=== PATIENT | male | born 1995 | race Caucasian/White ===

== ENCOUNTER → 2018-03-10 | Outpatient (CLI) | payer OTHER ==
[2018-03-11 05:07] LABS: Urine Alcohol Negative (Negative); Urine Barbiturate Negative (Negative); Urine Cocaine Negative (Negative); Urine Methadone Negative (Negative); Urine Opiates Negative (Negative); Urine Phencyclidine Negative (Negative)
== END | disposition home or self-care (01) ==
LOC: LABWHC1 16:08
PROVIDERS: ATTEND Internal Medicine Sleep Medicine
DX: G47.11 Idiopathic hypersomnia with long sleep time (principal)
CPT/HCPCS: 80306

== ENCOUNTER 2018-09-08 12:28 | Emergency (ER) | payer OTHER ==
[2018-09-08 12:53] LABS: Glucose,Whole Blood 102 mg/dL (75-99)
--- NOTE | 2018-09-08 12:55 | ED ---
General Adult HPI - General Chief complaint: Syncope Stated complaint: near syncope, testicular pain Time Seen by Provider: 09/08/18 12:44 Source: patient, RN notes reviewed Mode of arrival: ambulatory Limitations: no limitations - History of Present Illness Initial comments: 22-year-old male without any significant past medical history presents to the emergency department for a chief complaint of testicular pain. Patient has had this pain for about one week. Patient states it is about a 4 and is constant in nature. Patient states it is a dull aching. Patient denies any abdominal pain despite triage note. Patient also states he had 2 near syncopal episode today. States he was at the [employer] store and then [employer] when he became lig htheaded. Patient states he did not lose consciousness but went and got something to eat and sat down. States he is now feeling better. Patient has no other complaints at this time including shortness of breath, chest pain, abdominal pain, nausea or vomiting, headache, or visual changes. - Related Data Home Medications Medication Instructions Recorded Confirmed Aspirin/Sod Bicarb/Citric Acid 1 tab PO Q6H 09/08/18 09/08/18 [Michael Original Tab Eff] Allergies Allergy/AdvReac Type Severity Reaction Status Date / Time No Known Allergies Allergy Verified 09/08/18 14:16 Review of Systems ROS Statement: Those systems with pertinent positive or pertinent negative responses have been documented in the HPI. ROS Other: All systems not noted in ROS Statement are negative. Past Medical History Past Medical History: No Reported History Additional Past Medical History / Comment(s): anxiety History of Any Multi-Drug Resistant Organisms: None Reported Past Surgical History: No Surgical Hx Reported Past Anesthesia/Blood Transfusion Reactions: No Reported Reaction Past Psychological History: Anxiety, Bipolar, Depression Smoking Status: Never smoker Past Alcohol Use History: Occasional Past Drug Use History: None Reported - Past Family History Mother Family Medical History: Diabetes Mellitus General Exam Limitations: no limitations General appearance: alert, in no apparent distress Head exam: Present: atraumatic, normocephalic, normal inspection Eye exam: Present: normal appearance, PERRL, EOMI. Absent: scleral icterus, conjunctival injection, periorbital swelling ENT exam: Present: normal exam, mucous membranes moist Neck exam: Present: normal inspection, full ROM. Absent: tenderness, meningismus, lymphadenopathy Respiratory exam: Present: normal lung sounds bilaterally. Absent: respiratory distress, wheezes, rales, rhonchi, stridor Cardiovascular Exam: Present: regular rate, normal rhythm, normal heart sounds. Absent: systolic murmur, diastolic murmur, rubs, gallop, clicks GI/Abdominal exam: Present: soft, normal bowel sounds. Absent: distended, tenderness, guarding, rebound, rigid exam: Present: testicular tenderness (bilat, no specific epididymis tenderness), circumcision, other (Christie Singletary present for exam). Absent: urethral discharge, scrotal swelling, vertical testicular lie Course Vital Signs 09/08/18 12:39 Temperature 98.1 F Pulse Rate 100 Respiratory 18 Rate Blood Pressure 133/78 O2 Sat by Pulse 99 Oximetry EKG Findings - EKG Comments: EKG Findings:: Normal sinus rhythm, ventricular rate 98, VT interval 166, QTc 416 Medical Decision Making - Medical Decision Making 22-year-old male presents to the emergency department for a chief complaint of testicular pain as well as a near syncopal episode. Patient had 2 near-syncopal episodes today, one at [employer]. States he sat down to eat something and then felt better. Patient never loss consciousness or collapse. Glucose is 102, EKG shows a normal sinus rhythm with a ventricular rate of 98. No evidence of ST elevation or depression. Patient does appear anxious. Patient's main concern today is testicular pain. This has been ongoing for about one week. Denies dysuria or purulent discharge. On exam patient does have some generalized tenderness noted of the scrotum, no specific epididymis tenderness this. No evidence of infection of the scrotum. No cellulitic changes. Scrotal ultrasound shows symmetric blood flow to both testicles. There is a 1 cm simple-appearing right epididymal cyst. This could be the cause of patient's pain. Patient will follow up with urology for this. He will return here if he has any worsening symptoms. - Lab Data Lab Results 09/08/18 09/08/18 Range/Units 12:51 13:15 POC Glucose (mg/dL) 102 H (75-99) mg/dL POC Glu Shake Splitter ID Kori Singletary Urine Color Light Yellow Urine Appearance Clear (Clear) Urine pH 8.0 (5.0-8.0) Ur Specific [place] 1.005 (1.001-1.035) Urine Protein Negative (Negative) Urine Glucose (UA) Negative (Negative) Urine Ketones Negative (Negative) Urine Blood Negative (Negative) Urine Nitrite Negative (Negative) Urine Bilirubin Negative (Negative) Urine Urobilinogen <2.0 (<2.0) mg/dL Ur Leukocyte Esterase Negative (Negative) Disposition Clinical Impression: Testicular/scrotal pain, Near syncope, Epididymal cyst Disposition: HOME SELF-CARE Condition: Good Instructions (If sedation given, give patient instructions): Testicle Pain (ED), Near Syncope (ED), Scrotal Pain (ED) Additional Instructions: Please follow up with urology in 1-2 days. Drink plenty of fluids. Follow-up with primary care as well. Return here to the emergency department if you're having any worsening symptoms. Is patient prescribed a controlled substance at d/c from ED?: No Referrals: Daria Ward MD [Primary Care Provider] - 1-2 days Hayder Grey MD [STAFF PHYSICIAN] - 1-2 days Time of Disposition: 14:36
[2018-09-08 13:20] LABS: Appearance,Urine Clear (Clear); Bilirubin,Urine Negative (Negative); Blood,Urine Negative (Negative); Color,Urine Light Yellow; Glucose,Urine (UA) Negative (Negative); Ketones,Urine Negative (Negative); Leukocyte Esterase,Urine Negative (Negative); Nitrite,Urine Negative (Negative); Protein,Urine Negative (Negative); Specific Gravity,Urine 1.005 (1.001-1.035); Urobilinogen,Urine <2.0 mg/dL (<2.0)
--- NOTE | 2018-09-08 13:54 | US ---
EXAMINATION TYPE: US scrotum with doppler. Grayscale and color Doppler Duplex imaging performed of t kunal scrotum. DATE OF EXAM: 09/08/2018 COMPARISON: NONE CLINICAL HISTORY: Pain. EXAM MEASUREMENTS: TESTICLES: Right Testicle: 4.3 x 2.0 x 3.0 cm Left Testicle: 4.2 x 2.1 x 2.6 cm EPIDIDYMIS HEAD: Right Epididymis: 1.2 cm, cyst noted measuring 1.1cm Left Epididymis: 1.0 cm Doppler performed to assess for testicular vascularity; good bilateral color flow and waveforms are s een. Presence of hydroceles: no Presence of varicoceles: no Initial images show 1.1 cm simple appearing right epididymal cyst. Comparison views towards midportio n of exam show symmetric blood flow to both testicles. IMPRESSION: Documentation of symmetric blood flow to both testicles.
[2018-09-08 14:54] VITALS: BP 125/78; PULSE 90; RESP 16; TEMP 98
[2018-09-09 15:18] LABS: C. trachomatis,PCR Negative (Neg,Equiv); Chlamydia trachomatis Source Urine; N. gonorrhoeae,PCR Negative (Neg,Equiv); Neisseria Source Urine
== END 2018-09-08 14:54 | disposition home or self-care (01) ==
LOC: EC 12:28
DX: N50.3 Cyst of epididymis (principal); R55 Syncope and collapse; Z79.82 Long term (current) use of aspirin
CPT/HCPCS: 36415; 76870; 81003; 87491; 87591; 87661; 93005; 99284